=== PATIENT | male | born 1975 | race Caucasian/White ===

== ENCOUNTER → 2020-03-11 | Outpatient (CLI) | payer OTHER ==
[~2020-03-11] MED LIST: ACETAMINOPHEN325 M1 PO; IBUPROFEN 600600 M1 PO; IBUPROFEN 800800 M1 PO; PERCOCET 5-3251 EACH PO; TYLENOL EX-STR500 M2 PO; ZOFRAN4 MG PO; toradol IM
== END ==
LOC: ULTRA 14:35
PROVIDERS: ATTEND Family Medicine
DX: N43.3 Hydrocele, unspecified (principal); N50.89 Other specified disorders of the male genital organs